=== PATIENT | male | born 1990 ===

== ENCOUNTER → 2016-11-08 | Outpatient (CLI) | payer OTHER, BC | END | disposition home or self-care (01) | LOC: C.MAMM 09:26 | PROVIDERS: ATTEND Family Medicine | DX: E29.1 Testicular hypofunction (principal); F50.9 Eating disorder, unspecified; M85.88 Other specified disorders of bone density and structure, other site ==

== ENCOUNTER → 2016-11-24 | Outpatient (CLI) | payer OTHER | END | disposition home or self-care (01) | LOC: C.MAMM 11:30 | PROVIDERS: ATTEND Family Medicine | DX: F50.00 Anorexia nervosa, unspecified (principal) ==